=== PATIENT | male | born 1995 | race African-American/Black ===

== ENCOUNTER 2020-10-16 01:19 | Emergency (ER) | payer OTHER ==
[~2020-10-16] VITALS: Ht 193 cm; Wt 74.2 kg
[2020-10-16] MEDS ORDERED: IBUP80TA PO (04:17)
[2020-10-16] MEDS ORDERED: AUGM875T28 PO (04:17)
[2020-10-16] MEDS ORDERED: AUGMENTIN 875 MG TAB PO ONE (04:20)
[2020-10-16] MEDS ORDERED: KETOROLAC 60MG 2ML VIAL IM ONE (04:20)
[2020-10-16 04:54] VITALS: BP 122/58
== END 2020-10-16 04:55 | disposition home or self-care (01) ==
LOC: M ED 01:19
DX: K08.89 Other specified disorders of teeth and supporting structures (principal)
CPT/HCPCS: 96372; 99283; J1885

== ENCOUNTER 2020-12-28 16:45 | Emergency (ER) | payer SELFPAY, OTHER ==
[~2020-12-28] VITALS: Ht 193 cm; Wt 180.0 kg
[~2020-12-28 16:45] MED LIST: AUGM875T28 PO; IBUP80TA PO
--- NOTE | 2020-12-28 18:05 | REPVR ---
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 Axial and coronal reformatted images were created and reviewed. Radiation optimization: All CT scans at this facility use at least one of these dose optimization techniques: automated exposure control; mA and/or kV adjustment per patient size (includes targeted exams where dose is matched to clinical indication); or iterative reconstruction. COMPARISON: No relevant prior studies available. FINDINGS: Brain: No CT evidence of acute intracranial hemorrhage or acute territorial infarction. No significant mass effect or midline shift. Basal cisterns patent. Cerebral ventricles: Normal in size and configuration. Paranasal sinuses: Unremarkable. No fluid levels. Mastoid air cells: Grossly unremarkable. Bones/joints: No acute osseous abnormality. Soft tissues: Grossly unremarkable. IMPRESSION: No CT evidence of acute intracranial pathology. Electronically signed by: Raheel Dee On 12/28/2020 18:04:29 PM
--- NOTE | 2020-12-28 18:13 | REPVR ---
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 Axial, coronal and sagittal reformatted images were created and reviewed. Radiation optimization: All CT scans at this facility use at least one of these dose optimization techniques: automated exposure control; mA and/or kV adjustment per patient size (includes targeted exams where dose is matched to clinical indication); or iterative reconstruction. COMPARISON: No relevant prior studies available. FINDINGS: Bones/joints: Slight reversal of the normal cervical lordosis. No CT evidence of acute fracture, dislocation or subluxation. Alignment anatomic. Minimal levoscoliosis. Vertebral body heights maintained. Discs/Spinal canal/Neural foramina: Intervertebral disc spaces preserved. No significant spinal canal or neural foraminal stenosis. Lungs: Grossly unremarkable. Soft tissues: Grossly unremarkable. IMPRESSION: 1. No CT evidence of acute cervical spine pathology. 2. Additional findings, as above. Electronically signed by: Raheel Dee On 12/28/2020 18:12:35 PM
[2020-12-28 21:40] LABS: BASO % 0.4 % (0.0-1.0); EOS % 0.9 % (0.0-3.0); HEMATOCRIT 45.6 % (42.0-52.0); HEMOGLOBIN 14.6 g/dl (13.5-17.5); LYMPH # 2.3 10^3/uL (1.5-5.0); LYMPH % 48.3 % (24.0-44.0); MEAN CORPUSCULAR VOLUME 87.5 fl (80.0-96.0); MONO # 0.3 10^3/uL (0.0-0.8); MONO % 7.3 % (2.0-8.0); NEUTROPHILS % 42.9 % (36.0-66.0); PLATELET COUNT, AUTOMATED 186 10^3/uL (150-450); RED BLOOD COUNT 5.21 10^6/uL (4.30-6.10); WHITE BLOOD COUNT 4.7 10^3/uL (4.0-10.0)
[2020-12-28 22:10] LABS: ALBUMIN 4.9 GM/DL (3.2-5.2); ALT/SGPT 20 U/L (12-78); BILIRUBIN,DIRECT 0.2 MG/DL (0.0-0.2); BILIRUBIN,TOTAL 0.6 MG/DL (0.2-1.0); C REACTIVE PROTEIN QUANTITATIV < 0.30 MG/DL (0.00-0.30); FREE T4 1.06 NG/DL (0.76-1.46); TOTAL PROTEIN 8.8 GM/DL (6.4-8.2)
[2020-12-28 22:11] LABS: ERYTHROCYTE SEDIMENTATION RATE 1 mm/hr (0-15)
[2020-12-28 22:42] LABS: BLOOD UREA NITROGEN 14 MG/DL (7-18); CALCIUM LEVEL 9.5 MG/DL (8.5-10.1); CARBON DIOXIDE LEVEL 22 MEQ/L (21-32); CHLORIDE LEVEL 105 MEQ/L (98-107); CREATININE FOR GFR 1.21 MG/DL (0.70-1.30); GLOMERULAR FILTRATION RATE > 60.0 (>60); GLUCOSE, FASTING 87 MG/DL (70-100); POTASSIUM SERUM 3.7 MEQ/L (3.5-5.1); SODIUM LEVEL 140 MEQ/L (136-145)
--- NOTE | 2020-12-28 23:07 | REPVR ---
PROCEDURE INFORMATION: Exam: MR Head Without Contrast Exam date and time: 12/28/2020 10:55 PM Age: 25 years old Clinical indication: Weakness, extremity; Left; Additional info: Left sided weakness TECHNIQUE: Imaging protocol: MR of the head without contrast. COMPARISON: CT Head without contrast 12/28/2020 5:26 PM FINDINGS: Brain: Normal. No acute infarct. No hemorrhage. No significant white matter disease. No edema. Cerebral ventricles: Normal. No ventriculomegaly. Bones/joints: Unremarkable. Paranasal sinuses: Normal as visualized. No acute sinusitis. Mastoid air cells: Normal as visualized. No mastoid effusion. Orbital cavity: Unremarkable. Soft tissues: Unremarkable. IMPRESSION: No acute intracranial pathology. Electronically signed by: Raheel Dee On 12/28/2020 23:07:00 PM
--- NOTE | 2020-12-28 23:10 | REPVR ---
PROCEDURE INFORMATION: Exam: MRA Head Without Contrast; Arteriography Exam date and time: 12/28/2020 10:55 PM Age: 25 years old Clinical indication: Weakness; Additional info: Left sided weakness TECHNIQUE: Imaging protocol: Magnetic resonance angiography head without contrast. Exam focused on the arteries. Other technique: 3D-renderin-D post-processed images and/or MIPs were created and reviewed. COMPARISON: CT Head without contrast 12/28/2020 5:26 PM FINDINGS: ANTERIOR CIRCULATION: Right internal carotid artery: Intracranial segment is patent with no significant stenosis. No aneurysm. Right middle cerebral artery: No occlusion or significant stenosis. No aneurysm. Right anterior cerebral artery: No occlusion or significant stenosis. No aneurysm. Left internal carotid artery: Intracranial segment is patent with no significant stenosis. No aneurysm. Left middle cerebral artery: No occlusion or significant stenosis. No aneurysm. Left anterior cerebral artery: No occlusion or significant stenosis. No aneurysm. POSTERIOR CIRCULATION: Right vertebral artery: No occlusion or significant stenosis. No aneurysm. Left vertebral artery: No occlusion or significant stenosis. No aneurysm. Basilar artery: No occlusion or significant stenosis. No aneurysm. Right posterior cerebral artery: No occlusion or significant stenosis. No aneurysm. Left posterior cerebral artery: No occlusion or significant stenosis. No aneurysm. IMPRESSION: Unremarkable examination. Electronically signed by: Raheel Dee On 12/28/2020 23:09:56 PM
--- NOTE | 2020-12-28 23:13 | REPVR ---
PROCEDURE INFORMATION: Exam: MR Cervical Spine Without Contrast Exam date and time: 12/28/2020 10:55 PM Age: 25 years old Clinical indication: Weakness; Additional info: Left sided weakness TECHNIQUE: Imaging protocol: Multiplanar magnetic resonance images of the cervical spine without contrast. COMPARISON: CT Spine,cervical w/o contrast 12/28/2020 5:26 PM FINDINGS: Vertebrae: Straightening of the normal cervical lordosis. No acute fracture, dislocation or subluxation. Alignment anatomic. Vertebral body heights maintained. Spinal cord: Normal signal. No cord compression. Discs/Spinal canal/Neural foramina: No significant disc disease. No significant spinal stenosis. Vasculature: Expected flow voids in the vertebral arteries. Soft tissues: Unremarkable IMPRESSION: Unremarkable spine. Electronically signed by: Raheel Dee On 12/28/2020 23:13:05 PM
[2020-12-29 00:01] LABS: AMPHETAMINES URINE REFLEX NEGATIVE (NEGATIVE); BARBITURATES URINE REFLEX NEGATIVE (NEGATIVE); BENZODIAZEPINES URINE REFLEX NEGATIVE (NEGATIVE); COCAINE METABOLITE URINE REFLE NEGATIVE (NEGATIVE); METHADONE URINE REFLEX NEGATIVE (NEGATIVE); OPIATES URINE REFLEX NEGATIVE (NEGATIVE); PHENCYCLIDINE URINE REFLEX NEGATIVE (NEGATIVE)
[2020-12-29 00:05] LABS: CANNABINOIDS URINE REFLEX PENDING CONFIRMATION (NEGATIVE)
[2020-12-29 00:12] VITALS: BP 141/82
[2020-12-31 07:08] LABS: Cannabinoid Positive (.); GC Carboxy THC 450 ng/mL (Cutoff=10)
== END 2020-12-29 00:15 | disposition home or self-care (01) ==
LOC: M ED 16:45
DX: R29.898 Other symptoms and signs involving the musculoskeletal system (principal)
CPT/HCPCS: 36415; 70450; 70544; 70551; 72125; 72141; 80048; 80076; 80307; 81001; 84439; 84443; 85025; 85652; 86140; 99283; G0480

== ENCOUNTER 2021-03-03 10:16 | Emergency (ER) | payer OTHER, SELFPAY ==
[~2021-03-03] VITALS: Ht 193 cm; Wt 77.3 kg
[2021-03-03] MEDS ORDERED: IBUP80TA (10:39)
--- NOTE | 2021-03-03 11:02 | REP ---
INDICATION: twisted/swelling. COMPARISON: None. TECHNIQUE: Four views of the left ankle. FINDINGS: Four views of the left ankle demonstrate soft tissue swelling medially and laterally. Ankle mortise is intact. No fracture is visible. Anterior soft tissue swelling is seen as well. IMPRESSION: Diffuse soft tissue swelling. No fracture or subluxation seen. <Electronically signed by Tom Whiting > 03/03/21 [id number]
--- NOTE | 2021-03-03 11:03 | REP ---
INDICATION: twisted/swelling. COMPARISON: None. TECHNIQUE: Four views of the left calf. FINDINGS: Four views of the left tib fib demonstrate soft tissue swelling distally about the ankle. No fracture or subluxation is seen. No opaque foreign body noted. IMPRESSION: Soft tissue swelling at the ankle. No fracture or subluxation seen. <Electronically signed by Tom Whiting > 03/03/21 1100
[2021-03-03] MEDS ORDERED: IBUP-1022 PO (13:33)
[2021-03-03] MEDS ORDERED: IBUPROFEN 600MG TAB PO ONE (13:35)
[2021-03-03 13:43] VITALS: BP 133/91
== END 2021-03-03 13:50 | disposition home or self-care (01) ==
LOC: M ED 10:16
DX: S93.402A Sprain of unspecified ligament of left ankle, initial encounter (principal); Y92.9 Unspecified place or not applicable; Y93.9 Activity, unspecified; Y99.0 Civilian activity done for income or pay

== ENCOUNTER 2021-12-29 13:18 | Emergency (ER) | payer OTHER, SELFPAY ==
[~2021-12-29] VITALS: Ht 193 cm; Wt 71.3 kg
[~2021-12-29 13:18] MED LIST changes: +IBUP-1022 PO; +IBUP80TA
[2021-12-29 13:20] VITALS: BP 132/90
[2021-12-29] MEDS ORDERED: ULTR50TA8 (13:36)
[2021-12-29] MEDS ORDERED: AMOX875T2 PO (13:36)
[2021-12-29] MEDS ORDERED: ONDANSETRON 4MG 2ML VIAL IV ONE (15:10)
[2021-12-29] MEDS ORDERED: KETOROLAC 30 MG/ML 1ML VIAL IV ONE (15:10)
[2021-12-29] MEDS ORDERED: NS 1,000 ML IV ONE (15:10)
[2021-12-29 16:11] LABS: BASO % 0.1 % (0.0-1.0); HEMATOCRIT 43.9 % (42.0-52.0); LYMPH # 0.9 10^3/uL (1.5-5.0); LYMPH % 10.6 % (24.0-44.0); MEAN CORPUSCULAR HEMOGLOBIN 28.3 pg (27.0-33.0); MEAN CORPUSCULAR HGB CONC 31.9 g/dl (32.0-36.5); MEAN CORPUSCULAR VOLUME 88.7 fl (80.0-96.0); MONO # 0.6 10^3/uL (0.0-0.8); MONO % 6.7 % (2.0-8.0); NEUTROPHILS # 7.1 10^3/uL (1.5-8.5); NEUTROPHILS % 82.4 % (36.0-66.0); PLATELET COUNT, AUTOMATED 171 10^3/uL (150-450); RED BLOOD COUNT 4.95 10^6/uL (4.30-6.10); WHITE BLOOD COUNT 8.6 10^3/uL (4.0-10.0)
[2021-12-29 16:41] LABS: ALBUMIN 4.4 GM/DL (3.2-5.2); ALT/SGPT 21 U/L (12-78); BILIRUBIN,DIRECT < 0.1 MG/DL (0.0-0.2); LIPASE 38 U/L (73-393); TOTAL PROTEIN 8.3 GM/DL (6.4-8.2)
[2021-12-29 16:50] LABS: BLOOD UREA NITROGEN 9 MG/DL (7-18); CALCIUM LEVEL 9.8 MG/DL (8.5-10.1); CARBON DIOXIDE LEVEL 24 MEQ/L (21-32); CHLORIDE LEVEL 106 MEQ/L (98-107); CREATININE FOR GFR 1.12 MG/DL (0.70-1.30); GLOMERULAR FILTRATION RATE > 60.0 (>60); GLUCOSE, FASTING 89 MG/DL (70-100); POTASSIUM SERUM 4.4 MEQ/L (3.5-5.1); SODIUM LEVEL 139 MEQ/L (136-145)
[2021-12-29] MEDS ORDERED: ONDA4TAB6 PO (17:03)
== END 2021-12-29 17:41 | disposition home or self-care (01) ==
LOC: M ED 13:18
DX: K02.9 Dental caries, unspecified (principal); E86.0 Dehydration
CPT/HCPCS: 80048; 80076; 83690; 85025; 93005; 96361; 96374; 96375; 99284; J1885; J2405